=== PATIENT | male | born 1980 | race Caucasian/White ===

== ENCOUNTER 2022-08-05 13:09 | Emergency (ER) | payer BC ==
[2022-08-05] MEDS ORDERED: cefTRIAXone 1 GM, Lidocaine 1% 2.1 ML IM ONE ×2 (14:41)
[2022-08-05] MEDS ORDERED: Ketorolac 60 MG/2 ML SDV IM ONE (14:41)
[2022-08-05 15:27] LABS: CORONAVIRUS COVID-19 NAA NEGATIVE (NEGATIVE)
== END 2022-08-05 16:20 | disposition home or self-care (01) ==
LOC: JD.ED 13:09
DX: J02.0 Streptococcal pharyngitis (principal); Z88.0 Allergy status to penicillin; Z88.2 Allergy status to sulfonamides; Z20.822 Contact with and (suspected) exposure to COVID-19
CPT/HCPCS: 0240U; 96372; 99283; J0696; J1885